=== PATIENT | female | born 1950 | race Caucasian/White ===

== ENCOUNTER 2017-11-27 09:11 | Outpatient (CLI) | payer MEDICARE, BC | END 2017-11-27 09:12 | disposition home or self-care (01) | LOC: BICMAMMO 09:11 | PROVIDERS: ATTEND Obstetrics & Gynecology | DX: Z13.820 Encounter for screening for osteoporosis (principal); M85.89 Other specified disorders of bone density and structure, multiple sites | CPT/HCPCS: 77080 ==

== ENCOUNTER 2019-06-09 08:58 | Outpatient (CLI) | payer MEDICARE, BC ==
--- NOTE | 2019-06-09 11:10 | MMO ---
Bilateral MAMMO Bilat Diag [facility]. CLINICAL HISTORY: Patient is 68 years old and is seen for diagnostic exam. The patient has no family history of breast cancer. The patient has no personal history of cancer. VIEWS: The views performed were: bilateral craniocaudal with tomosynthesis; bilateral mediolateral oblique with tomosynthesis; and bilateral mediolateral with tomosynthesis. FILMS COMPARED: The present examination has been compared to prior imaging studies performed at [facility] on 06/09/2019, and at [facility] on 09/17/2017 and 09/27/2017. This study has been interpreted with the assistance of computer-aided detection. MAMMOGRAM FINDINGS: The breasts are heterogeneously dense, which could obscure a lesion on mammography. The previously seen abnormality in the right upper outer quadrant is not definitely seen on the current study, with the benefit of tomosynthesis. Ultrasound today shows a tiny right upper outer quadrant nodule that is unchanged since the outside ultrasound of September 2017. IMPRESSION: FINDINGS IN BOTH BREASTS ARE PROBABLY BENIGN. FOLLOW-UP IN 7 MONTHS IS RECOMMENDED. SEE SEPARATE REPORT OF TODAY'S BREAST ULTRASOUND FOR DETAILS OF SPECIFIC RECOMMENDATIONS. RECOMMEND FOLLOW UP RIGHT BREAST ULTRASOUND IN DECEMBER 2019. MAMMOGRAM IS NOT NECESSARY IN DECEMBER 2019. INSTEAD BILATERAL MAMMOGRAM IS RECOMMENDED IN MAY 2020. THE RESULTS OF THIS EXAM WERE SENT TO THE PATIENT. ACR BI-RADS Category 3 - Probably benign finding - short interval follow-up suggested. [facility] will notify the patient of the need for additional imaging services. MAMMOGRAPHY NOTE: 1. A negative mammogram report should not delay a biopsy if a dominant of clinically suspicious mass is present. 2. Approximately 10% to 15% of breast cancers are not detected by mammography. 3. Adenosis and dense breasts may obscure an underlying neoplasm. Reported by: CHLOE SMALLWOOD MD Electonically Signed: [id number]
--- NOTE | 2019-06-09 11:35 | ULT ---
ULTRASOUND RIGHT BREAST LIMITED: DATE: 06/09/2019. HISTORY: A 68-year-old female for followup of right breast mass. TECHNIQUE: Focused ultrasound of the right upper outer quadrant. COMPARISON: 09/27/2017 ultrasound from [place], [place]. FINDINGS: At the 10 o'clock position, 2 cm from the nipple, there is an ovoid, heterogeneously hypoechoic, 0.6 x 0.7 x 0.3 cm mass. It is wider than tall, with no acoustic shadowing. It is too small to definiti vely characterize, but it has not changed since 09/27/2017, except for the fact that the margins appea r better circumscribed on the current ultrasound (different, better quality ultrasound machine). It has heterogeneous internal echoes. This mass is not visible on the mammogram because of dense breast tissue. This was given a BI-RADS category 4 designation by the radiologist in [place], probably m ainly because of the suspicious appearance on the previous mammogram. However, the prior mammograms f [facility] did not have 3D tomosynthesis. On today's mammogram at [facility], with 3D tomosynthesis, the previously described mass is no longer visualized, and there ar e no suspicious findings on the current mammogram. IMPRESSION: 1. BI-RADS 3 - probably benign. Short interval followup suggested. 2. Small 0.7 cm lesion at 10 o'clock of right breast has been stable for 20 months. 3. The goal is to demonstrate stability for a total of 2 years, before designating this as a BI-RADS 2. 4. Recommend followup right breast ultrasound in December 2019 (no mammogram will be necessary at that t primo because this is not visible on mammogram). 5. After that, bilateral mammogram will be recommended in May 2020 (at which time a right breas t ultrasound will not be necessary, unless interval change has occurred). POS: MARICRUZ
== END 2019-06-09 08:59 | disposition home or self-care (01) ==
LOC: BICMAMMO 08:58
PROVIDERS: ATTEND Family Medicine
DX: R92.8 Other abnormal and inconclusive findings on diagnostic imaging of breast (principal); N64.89 Other specified disorders of breast
CPT/HCPCS: 76642; 77066; G0279

== ENCOUNTER 2020-01-13 14:47 | Outpatient (CLI) | payer MEDICARE, OTHER ==
--- NOTE | 2020-01-13 15:32 | ULT ---
ULTRASOUND BREAST LIMITED RIGHT: DATE: 01/13/2020 12:00 AM. INDICATION: Follow-up right breast lesion at 10:00 position 2 cm from the nipple. COMPARISON: Right breast ultrasound from [facility] dated June 09, 2019, and a right breast ultrasound from [facility] dated September 27, 2017. FINDING: The 0.7 x 0.3 cm fusiform hypoechoic nodule in the right breast 10 o'clock position, 2 cm from the ni pple has been stable since 2018 and is considered benign. Additional survey was performed to evaluate the previously documented lesions in the right breast 12:00 position on the 2018 right breas t ultrasound. The 1.3 cm cyst previously seen in the right breast 12:00 position is no longer present. In the right breast 3:00 position there is some mild ductal ectasia but no suspicious sonogr aphic abnormality. Within the right breast 7:00 position there is a 3 mm cyst. No suspicious sonographic abnormality demonstrated. IMPRESSION: BI-RADS Category 2-benign. Recommend routine annual mammographic screening. The 7 mm fusiform hypoechoic nodule in the right breast 10:00 position is stable since 2018 and is co nsidered benign. Patient was counseled on the findings [facility]. Patient will be due for a bilateral screening mammogram at the end of May of 2020. Transcribed Date/Time: 01/13/2020 3:41 PM
== END 2020-01-13 14:48 | disposition home or self-care (01) ==
LOC: BICULT 14:47
PROVIDERS: ATTEND Family Medicine
DX: R92.8 Other abnormal and inconclusive findings on diagnostic imaging of breast (principal); N63.10 Unspecified lump in the right breast, unspecified quadrant

== ENCOUNTER 2020-08-09 10:14 | Outpatient (CLI) | payer MEDICARE ==
--- NOTE | 2020-08-09 11:36 | BD ---
EXAM: DEXA bone density examination HISTORY: Menopause; osteoporosis screening COMPARISON: None FINDINGS: L1--bone mineral density 0.757 g/sq cm; T score -2.1. Z score -0.1 L2--bone mineral density 0.837 g/sq cm; T score -1.7; Z score 0.5 L3--bone mineral density 0.808 g/sq cm; T score -2.5; Z score -0.2 L4--bone mineral density 0.873 g/sq cm; T score -1.7, Z score 0.7 Total L1-L4--bone mineral density 0.821 g/sq cm; T score -2.1, Z score 0.2 Left femoral neck--bone mineral density0.586; T score -2.4, Z score -0.5 Total proximal left femur--bone mineral density 0.712; T score -1.9, Z score -0.3 This patient has a 10 year WHO fracture risk of a major osteoporotic fracture of 12% and of a hip fra cture of 3.4%. IMPRESSION: Based on the WHO criteria, the patient's bone mineral density is consideredOsteopenic. T he patient is at moderate risk for fracture.
--- NOTE | 2020-08-09 13:33 | MMO ---
Bilateral MAMMO Bilat Screen [facility]. CLINICAL HISTORY: Patient is 70 years old and is seen for screening. The patient has no family history of breast cancer. The patient has no personal history of cancer. VIEWS: The views performed were: bilateral craniocaudal with tomosynthesis and bilateral mediolateral oblique with tomosynthesis. FILMS COMPARED: The present examination has been compared to prior imaging studies performed at [facility] on 06/09/2019 and 01/13/2020, and at [facility] on 09/27/2017. This study has been interpreted with the assistance of computer-aided detection. MAMMOGRAM FINDINGS: The breasts are heterogeneously dense, which could obscure a lesion on mammography. There are stable benign appearing calcifications seen in both breasts. There are no suspicious masses, suspicious calcifications, or new areas of architectural distortion. IMPRESSION: THERE IS NO MAMMOGRAPHIC EVIDENCE OF MALIGNANCY. A ROUTINE FOLLOW-UP MAMMOGRAM IN 1 YEAR IS RECOMMENDED. THE RESULTS OF THIS EXAM WERE SENT TO THE PATIENT. ACR BI-RADS Category 2 - Benign finding MAMMOGRAPHY NOTE: 1. A negative mammogram report should not delay a biopsy if a dominant of clinically suspicious mass is present. 2. Approximately 10% to 15% of breast cancers are not detected by mammography. 3. Adenosis and dense breasts may obscure an underlying neoplasm. Reported by: DENNIS JOHNSTON MD Electonically Signed: [id number]
== END 2020-08-09 10:15 | disposition home or self-care (01) ==
LOC: BICMAMMO 10:14
PROVIDERS: ATTEND Family Medicine
DX: Z12.31 Encounter for screening mammogram for malignant neoplasm of breast (principal); Z13.820 Encounter for screening for osteoporosis; M85.89 Other specified disorders of bone density and structure, multiple sites; Z78.0 Asymptomatic menopausal state
CPT/HCPCS: 77063; 77067; 77080